=== PATIENT | male | born 1990 | race Caucasian/White ===

== ENCOUNTER 2019-07-12 16:11 | Outpatient (CLI) | payer OTHER | END 2019-07-12 16:12 | disposition home or self-care (01) | LOC: CTENTCT 16:11 | PROVIDERS: ATTEND Otolaryngology Plastic Surgery within the Head & Neck | DX: J32.8 Other chronic sinusitis (principal) | CPT/HCPCS: 70486 ==

== ENCOUNTER 2019-09-01 08:08 | Day surgery (SDC) | payer BC ==
[2019-08-31 10:34] VITALS: BMI 26.2
[2019-09-01] MEDS ORDERED: AFRIN NASAL MIST 15 ML BOT ONE ×2 (09:17→10:07)
[2019-09-01] MEDS ORDERED: Bacitracin Zinc Ointment 30 gm TUBE ONE (10:07)
[2019-09-01] MEDS ORDERED: Lidocaine 1% w/Epinephrine 1:100K 20 ML VIAL ONE (10:07)
[2019-09-01] MEDS ORDERED: Midazolam HCl 2 mg/2 ml Vial ONE (10:09)
[2019-09-01] MEDS ORDERED: HYDROmorphone 0.5 MG/0.5 ML SYRINGE ONE ×2 (10:09→10:59)
[2019-09-01] MEDS ORDERED: Fentanyl 100 MCG/2 ML VIAL ONE ×2 (10:09→12:11)
[2019-09-01] MEDS ORDERED: Ondansetron PF 4 MG/2 ML Vial ONE (10:27)
[2019-09-01] MEDS ORDERED: Lidocaine 1% PF 5 ML VIAL ONE (10:27)
[2019-09-01] MEDS ORDERED: PROPOFOL 200 MG/20 ML VIAL ONE (10:27)
[2019-09-01] MEDS ORDERED: Dexamethasone 20 MG/5 ML VIAL ONE (10:27)
[2019-09-01] MEDS ORDERED: Meperidine HCl/PF 25 MG/ML VIAL ONE (11:36)
[2019-09-01] MEDS ORDERED: Albuterol Sulfate 1.25 MG/3 ML NEB ONE (11:49)
[2019-09-01] MEDS ORDERED: HYDROcodone/Acetaminophen 5/325 mg Tablet ONE (13:13)
[2019-09-01] MEDS ORDERED: Promethazine HCl 25 MG/ML VIAL ONE (13:37)
--- NOTE | 2019-09-02 06:59 | OP ---
DATE OF PROCEDURE: 09/01/2019 PREOPERATIVE DIAGNOSES: 1. Chronic rhinosinusitis. 2. Bilateral nasal polyposis. 3. Nasal septal deviation. 4. Bilateral inferior turbinate hypertrophy. 5. Nasal obstruction. POSTOPERATIVE DIAGNOSES: 1. Chronic rhinosinusitis. 2. Bilateral nasal polyposis. 3. Nasal septal deviation. 4. Bilateral inferior turbinate hypertrophy. 5. Nasal obstruction. PROCEDURES PERFORMED: 1. Bilateral endoscopic sinus surgery, total ethmoidectomies. 2. Bilateral endoscopic sinus surgery, maxillary antrostomies. 3. Bilateral endoscopic sinus surgery, sphenoidotomies. 4. Left endoscopic sinus surgery, frontal sinusotomies. 5. Nasal septoplasty. 6. Bilateral inferior turbinate submucosal resection. 7. Endoscopic resection of nasal polyposis for nasal polypectomy. ESTIMATED BLOOD LOSS: 50 mL. COMPLICATIONS: None. ANESTHESIA: GETA. DESCRIPTION OF PROCEDURE: The patient was taken to the operating room and GETA was obtained by the anesthesia staff. Afrin pledgets were then placed into the nasal cavity bilaterally. The patient was placed into the beach chair position and was prepped and draped for standard nasal surgical procedures. Following this, the Afrin pledgets were removed and 1% lidocaine with 1:100,000 epinephrine was injected via a 27 gauge needle into the nasal septum, the inferior turbinate and the middle turbinate bilaterally. Following this, a Kotlik incision was made on the left nasal septum and mucoperichondrial flaps were elevated. A strong 2 cm caudal and dorsal cartilage strut was left intact as the deviated portions of the nasal cartilage and bone was removed. A 4-0 gut stitch was used to reapproximate the nasal mucoperichondrial flaps as well as close the Satinder incision. Following this, the submucosal microdebrider was used to puncture and submucosally resect the anterior - inferior portions of the hypertrophic inferior turbinates. The inferior turbinates were laterally outfractured with a Tolley elevator. Following this, 1% lidocaine with 1:100,000 epinephrine were injected into the middle turbinates and lateral nasal wall bilaterally. Following this, the 0-degree endoscope was used to visualize the middle turbinate and the middle turbinate was medially fractured using a Tolley elevator. Following this, the uncinate process was identified and was examined. The uncinate process was noted to be inflamed and laterally displaced bilaterally. Following this, a ball-ended probe was used to anteriorly fracture the uncinate process bilaterally. Following this, the 0-degree microdebrider and the up-biting Blakesley forceps were used to remove the uncinate process bilaterally. Following this, the natural maxillary sinus ostia was identified with the 0-degree endoscope and the ball-ended probe. The natural maxillary ostia was then widened using a 40-degree microdebrider and the straight Blakesley forceps bilaterally. Following this, the ethmoidal bulla was identified bilaterally. A 0-degree microdebrider was used to puncture the ethmoidal bulla on its medial and inferior aspect bilaterally. Following this, the 0-degree microdebrider and the up-biting Blakesley forceps were used to remove the ethmoidal bulla. Following this, the grand lamella was identified posterior to this area and was punctured using the 0-degree microdebrider bilaterally. Following this, the ethmoidal cells were opened from the posterior to the anterior using the 0-degree microdebrider, the 40-degree microdebrider and the up-biting Blakesley forceps bilaterally. Following this, the 45-degree endoscope and the 40-degree microdebrider blade were used to further remove the anterior ethmoidal cells to the level of the frontal sinus recess bilaterally. Following this, the 0-degree endoscope was advanced through the previous ethmoidectomies and a Waller tip suction was used to create a sphenoidotomy bilaterally by staying just medial and inferior to the attachment of the superior turbinate to the posterior nasal wall. Following this, the sphenoidotomies were then widened in a medial and inferior direction using 0-degree microdebrider bilaterally. Following this, 45-degree endoscope and the 40-degree microdebrider blade were used to further open the left frontal recess cells and expose the frontal sinus ostia on this left side. Following this, the frontal sinus ostia was then widened on the left side using the 45-degree microdebrider and up-biting Blakesley forceps. Nasal polyps were removed from the middle meatus area on the left side using the microdebrider and straight Blakesley forceps and from within the ethmoidal sinuses on the right side using 0-degree microdebrider. The nasal cavity was irrigated. NasoPore packing was placed within the middle meatus. Pino splints were placed and secured. Job ID: [id number]
== END 2019-09-01 14:45 | disposition home or self-care (01) ==
LOC: SDC 08:08
PROVIDERS: ATTEND Otolaryngology Plastic Surgery within the Head & Neck
PROC: 099Q8ZZ Drainage of Right Maxillary Sinus, Via Natural or Artificial Opening Endoscopic (ICD-10-PCS; principal; 2019-09-01)
PROC: 09BM8ZZ Excision of Nasal Septum, Via Natural or Artificial Opening Endoscopic (ICD-10-PCS; principal; 2019-09-01)
PROC: 09BT8ZZ Excision of Left Frontal Sinus, Via Natural or Artificial Opening Endoscopic (ICD-10-PCS; principal; 2019-09-01)
PROC: 099R8ZZ Drainage of Left Maxillary Sinus, Via Natural or Artificial Opening Endoscopic (ICD-10-PCS; principal; 2019-09-01)
DX: J32.9 Chronic sinusitis, unspecified (principal); J34.2 Deviated nasal septum; J34.3 Hypertrophy of nasal turbinates; J33.9 Nasal polyp, unspecified; J34.89 Other specified disorders of nose and nasal sinuses; I10 Essential (primary) hypertension; E78.00 Pure hypercholesterolemia, unspecified; J45.909 Unspecified asthma, uncomplicated; Z79.899 Other long term (current) drug therapy; Z87.891 Personal history of nicotine dependence; Z88.0 Allergy status to penicillin
CPT/HCPCS: 93005; 93010; J1100; J1170; J2001; J2175; J2250; J2405; J2550; J2704; J3010

== ENCOUNTER 2020-01-04 08:32 | Outpatient (CLI) | payer BC ==
[2020-01-04] MEDS ORDERED: Iopamidol 370 76% 100 ML VIAL ONE (09:14)
--- NOTE | 2020-01-04 11:08 | CT ---
ABDOMEN AND PELVIC CT SCAN WITH IV CONTRAST: HISTORY: Left lower quadrant abdominal tenderness and pain. FINDINGS: The lung bases are clear. Visualized liver, gallbladder, pancreas, spleen, and adrenal glands are un remarkable. No renal calculus or acute obstruction. No evidence for large or small bowel obstruc tion. Scattered small lymph nodes in the central and right lower quadrant mesentery, but no evidence for adenopathy. No evidence for large or small bowel obstruction. Urinary bladder is unremarkable. Normal-appearing appendix. IMPRESSION: Unremarkable abdomen and pelvic CT scan. Unremarkable abdominal and pelvic CT scan. POS: RRE
== END 2020-01-04 08:33 | disposition home or self-care (01) ==
LOC: CT 08:32
PROVIDERS: ATTEND Nurse Practitioner Family
DX: R10.814 Left lower quadrant abdominal tenderness (principal); R10.32 Left lower quadrant pain; R19.7 Diarrhea, unspecified
CPT/HCPCS: 74177; Q9967

== ENCOUNTER 2020-08-15 04:26 | Emergency (ER) | payer BC | END 2020-08-15 05:00 | disposition home or self-care (01) | LOC: ERS 04:26 | DX: J30.2 Other seasonal allergic rhinitis (principal); I49.9 Cardiac arrhythmia, unspecified; I48.91 Unspecified atrial fibrillation; F17.220 Nicotine dependence, chewing tobacco, uncomplicated; Z79.899 Other long term (current) drug therapy | CPT/HCPCS: 99283 ==

== ENCOUNTER 2021-03-10 10:38 | Emergency (ER) | payer BC ==
[2021-03-10 11:28] LABS: #Basophils 0.1 thou/uL (0.0-0.2); #Eosinphils 0.5 thou/uL (0.0-0.7); #Lymphocytes 2.3 thou/uL (1.20-3.40); #Monocytes 0.7 thou/uL (0.11-0.59); #Neutrophils 3.9 thou/uL (1.40-6.50); %Basophils 1.4 % (0.0-1.0); %Eosinophils 6.1 % (0.0-10.0); %Lymphocytes 31.4 % (21.0-51.0); %Neutrophils 52.1 % (42.0-75.0); Hemoglobin 15.9 g/dL (14.0-18.0); Mean Corpuscular HGB CONC 35.2 g/dL (32.0-36.0); Mean Corpuscular Hemoglobin 31.9 pg (27.0-31.0); Mean Corpuscular Volume 90.7 fL (78.0-98.0); Mean Platelet Volume 8.3 fL (7.4-10.4); Platelet Count 232 thou/uL (130-400); RBC Distribution Width 12.1 % (11.5-14.5); Red Blood Cell (RBC) Count 4.97 mill/uL (4.70-6.10); White Blood Cell (WBC) Count 7.5 thou/uL (4.8-10.8)
[2021-03-10 11:33] LABS: ALT (SGPT) 52 U/L (8-55); AST (SGOT) 26 U/L (5-34); Albumin 4.5 g/dL (3.5-5.0); Alkaline Phosphatase 64 U/L (40-110); Anion Gap 7 mmol/L (10-20); BUN (Urea Nitrogen) 16 mg/dL (8.9-20.6); Bilirubin, Total 0.5 mg/dL (0.2-1.2); Calc. Creatinine Clearance 0 mL/min (70-130); Calcium 9.8 mg/dL (7.8-10.44); Carbon Dioxide 30 mmol/L (22-29); Chloride 107 mmol/L (98-107); Glucose 85 mg/dL (70-105); Lipase 29 U/L (8-78); Potassium 4.1 mmol/L (3.5-5.1); Protein, Total 7.5 g/dL (6.0-8.3); Sodium 140 mmol/L (136-145)
[2021-03-10] MEDS ORDERED: Diltiazem 125 MG/25 ML ONE (12:52)
[2021-03-10] MEDS ORDERED: Fentanyl 100 MCG/2 ML VIAL ONE (15:19)
== END 2021-03-10 17:01 | disposition home or self-care (01) ==
LOC: ERS 10:38
DX: I48.91 Unspecified atrial fibrillation (principal); I10 Essential (primary) hypertension; F17.220 Nicotine dependence, chewing tobacco, uncomplicated; Z79.899 Other long term (current) drug therapy
CPT/HCPCS: 71045; 80053; 83690; 84484; 85025; 92960; 93005; 94760; 96365; 96366; 96375; 96376; J3010